=== PATIENT | male | born 1995 | race African-American/Black ===

== ENCOUNTER 2019-08-27 07:58 | Inpatient (IN) | payer MEDICAID ==
[~2019-08-27] VITALS: Ht 182.9 cm; Wt 82.3 kg
[2019-08-27] MEDS ORDERED: ZOLPIDEM TARTRATE 10 MG TABLET PO PRN (13:00)
[2019-08-27] MEDS ORDERED: HALOPERIDOL 5 MG TABLET PO PRN (13:00)
[2019-08-27] MEDS ORDERED: LORazepam 2 MG TABLET PO PRN (13:00)
[2019-08-27 14:09] VITALS: BP 112/65
[2019-08-27] MEDS ORDERED: no current meds PO (14:13)
[2019-08-27] MEDS ORDERED: INFLUENZA VIRUS VACCINE QVS 2019-20 (3YR+)/PF 60 MCG/0.5 ML SYRINGE IM ONE (14:45)
[2019-08-27 16:00] VITALS: BP 147/76
[2019-08-27] MEDS ORDERED: ONDANSETRON HCL 4 MG TABLET PO PRN (17:30)
[2019-08-27] MEDS ORDERED: CloNIDine HCL 0.1 MG TABLET PO PRN (17:30)
[2019-08-27] MEDS ORDERED: PETROLATUM,WHITE 28 GM JELLY TP PRN (17:30)
[2019-08-27] MEDS ORDERED: ACETAMINOPHEN 325 MG TABLET PO PRN (17:30)
[2019-08-27] MEDS ORDERED: IBUPROFEN 400 MG TABLET PO PRN (17:30)
[2019-08-27] MEDS ORDERED: GuaiFENesin/D-METHORPHAN [SUGAR-FREE] 200-20MG/10 ML SYRUP UDCUP PO PRN (17:30)
[2019-08-27] MEDS ORDERED: NICOTINE 14 MG/24 HOUR PATCH TD PRN (17:30)
[2019-08-27] MEDS ORDERED: LOPERAMIDE HCL 2 MG CAPSULE PO PRN (17:30)
[2019-08-27] MEDS ORDERED: MAGNESIUM HYDROXIDE SUSPENSION 30 ML UDCUP PO PRN (17:30)
[2019-08-27] MEDS ORDERED: ALBUTEROL SULFATE HFA 90 MCG/PUFF 8 GM INHALER IH PRN (17:30)
[2019-08-27] MEDS ORDERED: MAG HYDROX/AL HYDROX/SIMETH ES 30 ML SUSPENSION UDCUP PO PRN (17:30)
[2019-08-27] MEDS ORDERED: DOCUSATE SODIUM 100 MG CAPSULE PO PRN (17:30)
[2019-08-28 06:18] VITALS: BP 109/63
[2019-08-28 08:30] VITALS: BP 120/73
== END 2019-08-28 15:00 | disposition left against medical advice (07) | DRG 751 ==
LOC: B3A 13:24
DX: F33.2 Major depressive disorder, recurrent severe without psychotic features (principal); F10.10 Alcohol abuse, uncomplicated; F19.10 Other psychoactive substance abuse, uncomplicated; F41.1 Generalized anxiety disorder; K21.9 Gastro-esophageal reflux disease without esophagitis; Z53.29 Procedure and treatment not carried out because of patient's decision for other reasons; Z28.21 Immunization not carried out because of patient refusal; Z71.41 Alcohol abuse counseling and surveillance of alcoholic; Z71.51 Drug abuse counseling and surveillance of drug abuser